=== PATIENT | female | born 1965 | race Caucasian/White ===

== ENCOUNTER → 2024-05-02 16:55 | Outpatient (CLI) | payer BC, SELFPAY ==
--- NOTE | 2024-05-02 16:59 | DI.MRI.S_ITS ---
PROCEDURE: MR SHOULDER RT WO CON INDICATIONS: EVAL RT ROTATOR CUFF TEAR TECHNIQUE: Noncontrast oblique coronal T2 fast spin echo with fat saturation, oblique sagittal T1 spin echo and T2 fast spin echo with fat saturation, axial T1 spin echo and T2 fast spin echo with fat saturation through the shoulder. COMPARISON: [facility] Outside Film, MR, MR SHOULDER RIGHT WITHOUT CONTRAST, 09/22/2023, 13:24. FINDINGS: Image quality: Excellent. Rotator cuff: In the supraspinatus, there is focal, full-thickness tear at the critical zone of the most anterior fiber (series 8, image 14). Moderate tendinosis of the supraspinatus and infraspinatus. Small delaminating cyst along the myotendinous junction of the infraspinatus, suggestive of low-grade tear. The teres minor is unremarkable. Mild tendinosis of the subscapularis, without tear. No muscle edema or fatty atrophy. Bones and bursae: Mild degenerative changes of the acromioclavicular joint. Type 2 acromion. No os acromiale. Moderate subacromial/subdeltoid bursitis. Status post rotator cuff repair with suture anchor at the anterior aspect of the greater tuberosity, and at the lesser tuberosity. No acute fracture. Capsule and soft tissues: Diffuse labral degeneration and tear. Low-grade tear of the proximal extra-articular biceps tendon. The intra-articular biceps tendon is not definitely visualized. No significant glenohumeral effusion. IMPRESSION: 1. Status post rotator cuff repair. 2. Focal, full-thickness tear at the most anterior fibers of the supraspinatus. 3. Small delaminating cyst in the infraspinatus, suggestive of low-grade tear. 4. Mild degenerative changes of the acromioclavicular joint. 5. Low-grade tear of the proximal extra-articular biceps tendon. Nonvisualization of the intra-articular biceps tendon, which may be torn. Dictated by: Mona Morales M.D. on 05/02/2024 at 22:55 Approved by: Mona Morales M.D. on 05/02/2024 at 23:04
== END ==
LOC: MRI 16:58
PROVIDERS: Referring Provider Orthopaedic Surgery; Visit Provider Orthopaedic Surgery
DX: S46.211A Strain of muscle, fascia and tendon of other parts of biceps, right arm, initial encounter (principal); S46.011D Strain of muscle(s) and tendon(s) of the rotator cuff of right shoulder, subsequent encounter; X58.XXXD Exposure to other specified factors, subsequent encounter; M25.811 Other specified joint disorders, right shoulder
CPT/HCPCS: 73221